=== PATIENT | male | born 1990 | race African-American/Black ===

== ENCOUNTER 2017-11-22 21:00 | Emergency (ER) | payer BC ==
[2017-11-22 22:14] LABS: INFLUENZA A PATIENT POSITIVE (NEGATIVE); INFLUENZA B PATIENT NEGATIVE (NEGATIVE); OBC FLU VALID
[2017-11-23 08:14] LABS: NEGATIVE OBC STREP NEG; POSITIVE OBC STREP POS
== END 2017-11-22 22:40 | disposition home or self-care (01) ==
LOC: ER 21:00
DX: J09.X2 Influenza due to identified novel influenza A virus with other respiratory manifestations (principal); J45.909 Unspecified asthma, uncomplicated
CPT/HCPCS: 87070; 87804; 87804-59; 87880; 99284